=== PATIENT | male | born 1985 | race Caucasian/White ===

== ENCOUNTER 2019-06-15 08:59 | Emergency (ER) | payer BC, SELFPAY ==
[2019-06-15 09:05] VITALS: BP 124/86; PULSE 78; RESP 16; TEMP 37.4; O2SAT 98
--- NOTE | 2019-06-15 09:55 | ED.URI ---
HPI - URI/Sore Throat General Chief Complaint: Upper Respiratory Infection Stated Complaint: cough and congestion Time Seen by Provider: 06/15/19 09:55 Source: patient and RN notes reviewed Mode of arrival: ambulatory Limitations: no limitations History of Present Illness HPI Narrative: 33-year-old male who presents to [facility] care with complaints of 3 day duration of productive cough, facial sinus pressure with drainage. Patient states that he has been taking DayQuil and NyQuil and also has used some Tylenol for headache discomfort. Patient denies any known fever but has had some chills and sweats. Patient states past history of sinus infections with similar symptoms. Patient denies any shortness of breath or any noted wheezing with SAO2 98% on room air. MD elicited complaint: cough, rhinorrhea, nasal congestion and sinus pain Pertinent past history: sinusitis Onset (ago): day(s) (3) Consistency: progressively worsening Severity: moderate Pain scale (0-10): 4 Description of mucous: clear Able to tolerate fluids by mouth: Yes Exacerbating factors: exertion and leaning forward Relieving factors: nothing Associated symptoms: chills, headache, rhinorrhea, nasal congestion, sore throat and cough Treatments prior to arrival: acetaminophen and other (DayQuil and NyQuil) Related Data Home Medications Medication Instructions Recorded Confirmed levetiracetam 1,000 mg PO BID 06/15/19 06/15/19 oxcarbazepine 600 mg PO DAILY 06/15/19 06/15/19 Allergies Allergy/AdvReac Type Severity Reaction Status Date / Time No Known Allergies Allergy Unverified 04/26/19 08:39 Review of Systems Review of Systems: Narrative: CONSTITUTIONAL: reports feverish, chills, or sweats. EYES: Denies visual changes, redness, or discharge. ENT:Positve for rhinorrhea, congestion, no sore throat, or otalgia. CARDIOVASCULAR: Denies chest pain, palpitations, or edema. RESPIRATORY: positive cough no dyspnea. GASTROINTESTINAL: Denies abdominal pain, nausea, vomiting, or diarrhea. GENITOURINARY: Denies dysuria or hematuria. SKIN: Denies rash or itching. MUSCULOSKELETAL: Denies back pain, joint pain, or myalgia. NEUROLOGIC positive headache and facial sinus pressure denies numbness or weakness. PSYCHIATRIC: Denies anxiety history of some depression. All systems reviewed & are unremarkable except as noted in HPI and below PMFSH Past Medical History Medical History (Updated 06/17/19 @ 09:56 by Amy Hernandez NP) Depression Epilepsy GERD (gastroesophageal reflux disease) Sinusitis Spinal stenosis Surgical History Surgical History (Updated 06/17/19 @ 09:55 by Amy Hernandez NP) History of appendectomy History of arthroplasty of right shoulder Family History Family History Other Family history of arthritis Family history of malignant neoplasm Social History Social History (Updated 06/17/19 @ 09:53 by Amy Hernandez NP) Smoking status: Former smoker Smoking end date: 04/20/10 Alcohol intake: never Living arrangements: with family Gender identity (if verbalized by the patient): Male Comments At time of signature, agree with nursing past medical, social history. There is no relevant family history pertinent to the presenting complaint Exam Narrative: Exam Narrative: GENERAL: ill-appearing, well-nourished, and in no acute distress. HEAD: Normocephalic, atraumatic. EYES: PERRLA and EOMI. ENT: Nares red, yellow rhinorrhea no epistaxis. Mucous membranes moist. TMs normal with good light reflex no drainage, throat red with no exudates or lesions no tonsil enlargement postnasal drainage NECK: Supple. No lymphadenopathy CHEST: Clear to auscultation. No respiratory distress. Intermittent cough SaO2 98% on room air HEART: Regular rate and rhythm. No murmur heard. Normal peripheral pulses. ABDOMEN: Soft, nontender, nondistended, normal active bowel sounds. EXTREMITIES: Normal ran
== END 2019-06-15 10:14 | disposition home or self-care (01) ==
PROVIDERS: Emergency Provider Registered Nurse
DX: J00 Acute nasopharyngitis [common cold] (principal); J01.90 Acute sinusitis, unspecified; Z87.891 Personal history of nicotine dependence; K21.9 Gastro-esophageal reflux disease without esophagitis; G40.909 Epilepsy, unspecified, not intractable, without status epilepticus; M48.00 Spinal stenosis, site unspecified
CPT/HCPCS: 99213; G0463

== ENCOUNTER 2019-12-23 14:41 | Outpatient (CLI) | payer BC, OTHER, SELFPAY ==
--- NOTE | ~2019-12-23 | MR_ITS ---
EXAMINATION: MR cervical spine wo con DATE: 12/23/2019 15:44 INDICATION: Neck pain. TECHNIQUE: Magnetic resonance imaging (MRI) of the cervical spine was performed without intravenous c ontrast. Sequences included sagittal T2-weighted FSE, sagittal STIR FSE, sagittal T1-weighted FSE, ax ial MERGE, and axial T2-weighted FSE. COMPARISON: None FINDINGS: There is 9 degrees dextrocurvature of cervical spine. There is kyphosis of upper cervical s pine. Vertebral body heights are normal. There is mildly decreased disc height at C3-C4, C5-C6, and C 6-C7. The spinal cord signal intensity is normal. The following disc levels are specifically discusse d: C2-C3: The disc does not extend beyond the endplate margin. There is no uncovertebral joint osteoarth ritis. There is mild left facet joint osteoarthritis. There is no neural foraminal stenosis. There is no central canal stenosis. C3-C4: The disc is bulging. There is mild bilateral uncovertebral joint osteoarthritis. There is no f acet joint osteoarthritis. There is mild bilateral neural foraminal stenosis. There is mild central c anal stenosis with ventral indentation of the spinal cord. C4-C5: The disc is bulging. There is mild bilateral uncovertebral joint osteoarthritis. There is no f acet joint osteoarthritis. There is mild bilateral neural foraminal stenosis. There is mild central c anal stenosis. C5-C6: The disc is bulging. There is mild right and moderate left uncovertebral joint osteoarthritis. There is mild left facet joint osteoarthritis. There is mild bilateral neural foraminal stenosis. Th ere is mild central canal stenosis. C6-C7: The disc is bulging. There is mild right and severe left uncovertebral joint osteoarthritis. T here is mild left facet joint osteoarthritis. There is mild right and severe left neural foraminal st enosis. There is mild central canal stenosis. C7-T1: The disc does not extend beyond the endplate margin. There is no uncovertebral joint osteoarth ritis. There is severe bilateral facet joint osteoarthritis. There is mild bilateral neural foraminal stenosis. There is no central canal stenosis. IMPRESSION: 1. Severe left neural foraminal stenosis at C6-C7. Otherwise mild cervical spondylosis. Reviewed, dictated and finalized at location A. IMPRESSION: 1. Severe left neural foraminal stenosis at C6-C7. Otherwise mild cervical spon dylosis.
== END 2019-12-23 14:42 | disposition home or self-care (01) ==
DX: M47.892 Other spondylosis, cervical region (principal)
CPT/HCPCS: 72141